=== PATIENT | female | born 1980 | race Caucasian/White ===

== ENCOUNTER 2016-09-28 21:25 | Emergency (ER) | payer MEDICAID, OTHER ==
[~2016-09-28] VITALS: Ht 152.4 cm; Wt 73.1 kg
[~2016-09-28 21:25] MED LIST: ACET-818 PO; PREN-39 PO
[2016-09-28 21:51] VITALS: Ht 152.4 cm; Wt 73.1 kg
[2016-09-28] MEDS ORDERED: LIDOCAINE 1% (MDV) 20 ML INJ SC ONE (23:00)
[2016-09-28] MEDS ORDERED: SILVER NITRATE SWAB TOP ONE (23:00)
[2016-09-29] MEDS ORDERED: HYDR-906 PO (00:20)
[2016-09-29] MEDS ORDERED: CEPH-443 PO (00:20)
[2016-09-29] MEDS ORDERED: ACETAMINOPHEN 500 MG TAB PO STA (00:22)
--- NOTE | 2016-09-29 00:29 | ERD ---
ER Documentation Chief Complaint Date/Time DATE: 09/29/16 TIME: 00:24 Chief Complaint finger injury 3 weeks ago HPI Is a 36-year-old female who presents to the emergency department today complaining of a bump on her finger that is very painful. Patient states that she injured it 3 weeks ago with stabbing herself with a pencil. Denies any fevers or chills per ROS All systems reviewed and are negative except as per history of present illness. Medications Home Meds Active Scripts Hydrocodone/Acetaminophen ([place] 5-325 Tablet) 1 Each Tablet, 1 TAB PO Q6H Y for PAIN, #12 TAB Prov:CHINTAN BABIN PA-C 09/29/16 Cephalexin* (Keflex*) 500 Mg Capsule, 500 MG PO QID for 7 Days, CAP Prov:CHINTAN BABIN PA-C 09/29/16 Reported Medications Acetaminophen-Codeine* (Tylenol No.3*) 300-30 Mg Tablet, 1 TAB PO Q4H Y for PAIN , TAB 04/01/14 Vits W-Ca,Fe,Fa(<1MG) ( Vitamins) 1 Tab Tablet, 1 TAB PO HS 03/30/14 Allergies Allergies: Coded Allergies: No Known Drug Allergies (Verified Allergy, Mild, 09/28/16) PMhx/Soc History of Surgery: Yes (IUD) Anesthesia Reaction: No Hx Neurological Disorder: No Hx Respiratory Disorders: No Hx Cardiac Disorders: No Hx Psychiatric Problems: No Hx Miscellaneous Medical Probl: No Hx Alcohol Use: No Hx Substance Use: No Hx Tobacco Use: No Smoking Status: Unknown if ever smoked Physical Exam Vitals Vital Signs Date Time Temp Pulse Resp B/P Pulse Ox O2 Delivery O2 Flow Rate FiO2 09/28/16 21:51 98.3 96 18 113/66 99 Physical Exam Const: No acute distress Head: Atraumatic Eyes: Normal Conjunctiva ENT: Normal External Ears, Nose and Mouth. Neck: Full range of motion..~ No meningismus. Resp: Clear to auscultation bilaterally Cardio: Regular rate and rhythm, no murmurs Abd: Soft, non tender, non distended. Normal bowel sounds Skin: Right hand second finger with evidence of pyogenic granuloma Ext: Right hand second finger with evidence of pyogenic granuloma. No evidence of cellulitis. No purulent drainage. Neur: Awake and alert Psych: Normal Mood and Affect Results 24 hrs Current Medications Medications (Trade) Dose Ordered Sig/Jamin Route PRN Reason Start Time Stop Time Status Last Admin Dose Admin Silver Nitrate (Silver Nitrate Swabs) 5 stick ONCE ONCE TOP 09/28/16 23:00 09/28/16 23:01 DC Lidocaine (Xylocaine 1% (Mdv) 20 ml) 20 ml ONCE ONCE SC 09/28/16 23:00 09/28/16 23:01 DC Procedures/MDM This is a 36-year-old female presents to the emergency department today complaining of a bump on her right hand after stabbing herself with a pencil. On physical exam patient has evidence of a pyogenic granuloma. Patient was asking me to cut off the area if possible. I did explain to the patient that the area does bleed a fair amount but that I could try to cauterize it and remove some of the tissue. I explained the risks and benefits of the patient and the patient agreed to proceed. The area was prepped in the usual sterile fashion. Patient tolerated the procedure well. There was some bleeding that persisted and therefore after using the silver nitrate cauterization Surgicel was placed as opposed to using a stitch given that silver nitrate had already been applied.. Location: Right hand second finger Anesthesia: [Local 1% Lidocaine] 1 cc Complications: [Neurovascularly intact post procedure] 48 hour wound check. Scar minimization instructions given. Exam and w/u not consistent w/ sepsis, deep space infection, or foreign body. Patient is hemodynamically stable. She was given Tylenol here in the emergency department as she is here with her 3 children and she is driving. I did give her a prescription for Bloomburg for home as well as Keflex. Patient was instructed to return tomorrow for a wound check to have the Surgicel removed. At this time the patient is stable for discharge and outpatient management. Patient should follow up with their PCP in the next 1-2 days. They may return to the emergency department sooner for any persistent or worsening of symptoms. Patient understood and agreed with the plan. Departure Diagnosis: Primary Impression: Pyogenic granuloma Condition: Fair Patient Instructions: Pyogenic Granuloma Referrals: ANABELLE RODRÍGUEZ MD,JAMSHID GAITAN,KELSIE RODRIGUEZ,GWENDOLYN VANG,TENZIN GARG,SILVIA [facility] YOU HAVE RECEIVED A MEDICAL SCREENING EXAM AND THE RESULTS INDICATE THAT YOU DO NOT HAVE A CONDITION THAT REQUIRES URGENT TREATMENT IN THE EMERGENCY DEPARTMENT. FURTHER EVALUATION AND TREATMENT OF YOUR CONDITION CAN WAIT UNTIL YOU ARE SEEN IN YOUR DOCTORS OFFICE WITHIN THE NEXT 1-2 DAYS. IT IS YOUR RESPONSIBILITY TO MAKE AN APPOINTMENT FOR FOLOW-UP CARE. IF YOU HAVE A PRIMARY DOCTOR --you should call your primary doctor and schedule an appointment IF YOU DO NOT HAVE A PRIMARY DOCTOR YOU CAN CALL OUR PHYSICIAN REFERRAL HOTLINE AT IF YOU CAN NOT AFFORD TO SEE A PHYSICIAN YOU CAN CHOSE FROM THE FOLLOWING [facility] [address] [facility]. [facility] [address] [facility] [address] [facility] [facility] [address] [facility] [facility] [address] [facility] [facility] [address] Additional Instructions: Call your primary care doctor TOMORROW for an appointment during the next 1-2 days.See the doctor sooner or return here if your condition worsens before your appointment time. Recheck wound tomorrow Take Blo[place] for pain otherwise take tylenol or motrin Take antibiotics as prescribed CHINTAN BABIN PA-C Sep 29, 2016 00:29
[2016-09-29 00:57] VITALS: BP 120/74; PULSE 101; RESP 16
== END 2016-09-29 00:58 | disposition home or self-care (01) ==
LOC: FTE 21:25
DX: L98.0 Pyogenic granuloma (principal); W26.8XXA Contact with other sharp object(s), not elsewhere classified, initial encounter; Y92.9 Unspecified place or not applicable
CPT/HCPCS: 12001; Z7502; Z7610

== ENCOUNTER 2016-11-05 09:59 | Emergency (ER) | payer MEDICAID ==
[~2016-11-05] VITALS: Wt 70.2 kg
[~2016-11-05 09:59] MED LIST changes: +CEPH-443 PO; +HYDR-906 PO
[2016-11-05] MEDS ORDERED: LIDOCAINE/MYLANTA 40 ML BTL PO STA (10:40)
[2016-11-05] MEDS ORDERED: FAMOTIDINE 20 MG INJ IV STA (10:40)
[2016-11-05] MEDS ORDERED: ONDANSETRON 4 MG INJ IV STA (10:40)
[2016-11-05 11:05] LABS: ADD SCAN DIFF NO
[2016-11-05 11:07] LABS: BASOPHILS % 0.2 % (0.0-2.0); EOSINOPHILS % 0.7 % (0.0-7.0); HEMATOCRIT 41.8 % (37.0-47.0); HEMOGLOBIN 13.9 g/dl (12.0-16.0); LYMPHOCYTES # 1.9 10^3/ul (0.8-2.9); LYMPHOCYTES % 32.6 % (15.0-51.0); MEAN CORPUSCULAR HGB CONC 33.3 g/dl (32.0-37.0); MEAN CORPUSCULAR VOLUME 90.3 fl (82.0-101.0); MEAN PLATELET VOLUME 9.6 fl (7.4-10.4); MONOCYTE # 0.4 10^3/ul (0.3-0.9); MONOCYTES % 7.3 % (0.0-11.0); NEUTROPHIL # 3.4 10^3/ul (1.6-7.5); PLATELET COUNT 272 10^3/UL (140-415); RED BLOOD COUNT 4.63 10^6/ul (4.20-5.40); RED CELL DISTRIBUTION WIDTH 12.6 % (11.5-14.5); WHITE BLOOD COUNT 5.8 10^3/ul (4.8-10.8)
[2016-11-05 11:16] LABS: ADD UMIC YES; URINE BILIRUBIN (Dip) NEGATIVE (NEGATIVE); URINE BLOOD (Dip) TRACE (NEGATIVE); URINE COLOR LT. YELLOW (YELLOW); URINE GLUCOSE (Dip) NEGATIVE (NEGATIVE); URINE KETONES (Dip) NEGATIVE (NEGATIVE); URINE LEUKOCYTE ESTERASE (Dip) NEGATIVE (NEGATIVE); URINE NITRITE (Dip) NEGATIVE (NEGATIVE); URINE TOTAL PROTEIN (Dip) NEGATIVE (NEGATIVE); URINE UROBILINOGEN (Dip) 0.2 E.U./dL (0.1-1.0)
[2016-11-05 11:22] LABS: ALBUMIN 4.2 g/dl (3.3-4.9)
[2016-11-05 11:23] LABS: POTASSIUM 3.8 mmol/L (3.5-5.1)
[2016-11-05 11:25] LABS: ALBUMIN/GLOBULIN RATIO 1.16; BILIRUBIN,INDIRECT 0.3 mg/dl (0-1.1); BILIRUBIN,TOTAL 0.3 mg/dl (0.2-1.3); CREATININE 0.53 mg/dl (0.44-1.00); TOTAL PROTEIN 7.8 g/dl (6.1-8.1)
[2016-11-05 11:26] LABS: CALCIUM 8.9 mg/dl (8.4-10.2)
[2016-11-05 11:28] LABS: SQUAMOUS EPITHELIAL CELL,UR FEW; URINE RBCS 0-2 /HPF (0)
--- NOTE | 2016-11-05 12:04 | RADRPT ---
PROCEDURE: Right upper quadrant abdominal ultrasound. CLINICAL INDICATION: Abdominal pain TECHNIQUE: Santana scale and color doppler ultrasound images of the right upper quadrant. COMPARISON: None FINDINGS: Pancreas: Visualized portions appear of normal echogenicity, no focal lesions. Liver: Morphology: Normal in size and contour. Echogenicity: Normal. Focal lesions: None. Main portal vein: Patent with hepatopetal flow. Biliary System: Normal appearing gallbladder wall. Small gallstones are present within the gallbladder. No intrahepatic biliary dilatation. Common bile duct measures 4.8 mm in maximal dimension. Kidneys: Right 10.3 cm in length. Right renal cortical thickness is preserved. Normal echogenicity. No hydronephrosis. No renal calculi. No focal lesions. No free fluid identified. IMPRESSION: Cholelithiasis without evidence of abnormal gallbladder wall thickening to suggest cholecystitis. Normal caliber of the intrahepatic and extrahepatic biliary system. RPTAT: AADD .Jerad Peters MD, MD Date Time Electronically viewed and signed by .Jerad Peters MD, MD on 11/05/2016 12:03 .B/
[2016-11-05] MEDS ORDERED: TRAM50TA2 PO (12:09)
[2016-11-05] MEDS ORDERED: PANT40TA3 PO (12:09)
[2016-11-05 12:27] VITALS: BP 128/71; PULSE 77; RESP 18
--- NOTE | 2016-12-17 10:44 | ERD ---
ER Documentation Chief Complaint Date/Time DATE: 12/17/16 TIME: 10:43 Chief Complaint epigasgtric burning pain for a few wks. no vomiting just diarrhea HPI This 36 female complains of epigastric abdominal pain last few weeks. Denies any vomiting although she does have some nausea. She does have some diarrhea without blood or mucus. She denies fevers. ROS All systems reviewed and are negative except as per history of present illness. Medications Home Meds Active Scripts Pantoprazole* (Protonix*) 40 Mg Tablet.dr, 40 MG PO DAILY, #30 TAB Prov:FLASH PEREZ MD 11/05/16 Tramadol HCl (Tramadol HCl) 50 Mg Tablet, 50 MG PO Q4 Y for PAIN, #20 TAB Prov:FLASH PEREZ MD 11/05/16 Hydrocodone/Acetaminophen ([place] 5-325 Tablet) 1 Each Tablet, 1 TAB PO Q6H Y for PAIN, #12 TAB Prov:CHINTAN BABIN PA-C 09/29/16 Cephalexin* (Keflex*) 500 Mg Capsule, 500 MG PO QID for 7 Days, CAP Prov:CHINTAN BABIN PA-C 09/29/16 Reported Medications Acetaminophen-Codeine* (Tylenol No.3*) 300-30 Mg Tablet, 1 TAB PO Q4H Y for PAIN , TAB 04/01/14 Vits W-Ca,Fe,Fa(<1MG) ( Vitamins) 1 Tab Tablet, 1 TAB PO HS 03/30/14 Allergies Allergies: Coded Allergies: No Known Drug Allergies (Verified Allergy, Mild, 11/05/16) PMhx/Soc History of Surgery: Yes (IUD) Anesthesia Reaction: No Hx Neurological Disorder: No Hx Respiratory Disorders: No Hx Cardiac Disorders: No Hx Psychiatric Problems: No Hx Miscellaneous Medical Probl: No Hx Alcohol Use: No Hx Substance Use: No Hx Tobacco Use: No Smoking Status: Never smoker Physical Exam Physical Exam Const: [] Alert, [id number]. Head: Atraumatic Eyes: Normal Conjunctiva ENT: Normal External Ears, Nose and Mouth. Neck: Full range of motion..~ No meningismus. Resp: Clear to auscultation bilaterally Cardio: Regular rate and rhythm, no murmurs Abd: Soft, non tender, non distended. Normal bowel sounds Skin: No petechiae or rashes Back: No midline or flank tenderness Ext: No cyanosis, or edema Neur: Awake and alert Psych: Normal Mood and Affect Results 24 hrs Laboratory Tests Test 11/05/16 09:45 11/05/16 10:50 Urine Color LT. YELLOW Urine Clarity CLEAR Urine pH 6.0 Urine Specific [place] 1.020 Urine Ketones NEGATIVE Urine Nitrite NEGATIVE Urine Bilirubin NEGATIVE Urine Urobilinogen 0.2 E.U./dL Urine Leukocyte Esterase NEGATIVE Urine Microscopic RBC 0-2/HPF Urine Microscopic WBC NONE SEEN/HPF Urine Squamous Epithelial Cells FEW Urine Hemoglobin TRACE Urine Glucose NEGATIVE% Urine Total Protein NEGATIVE White Blood Count 5.810^3/ul Red Blood Count 4.6310^6/ul Hemoglobin 13.9g/dl Hematocrit 41.8% Mean Corpuscular Volume 90.3fl Mean Corpuscular Hemoglobin 30.0pg Mean Corpuscular Hemoglobin Concent 33.3g/dl Red Cell Distribution Width 12.6% Platelet Count 80322^3/UL Mean Platelet Volume 9.6fl Neutrophils % 59.0% Lymphocytes % 32.6% Monocytes % 7.3% Eosinophils % 0.7% Basophils % 0.2% Nucleated Red Blood Cells % 0.0/100WBC Neutrophils # 3.410^3/ul Lymphocytes # 1.910^3/ul Monocytes # 0.410^3/ul Eosinophils # 0.010^3/ul Basophils # 0.010^3/ul Nucleated Red Blood Cells # 0.010^3/ul Sodium Level 137mmol/L Potassium Level 3.8mmol/L Chloride Level 104mmol/L Carbon Dioxide Level 26mmol/L Anion Gap 11 Blood Urea Nitrogen 7mg/dl Creatinine 0.53mg/dl Glucose Level 93mg/dl Calcium Level 8.9mg/dl Total Bilirubin 0.3mg/dl Direct Bilirubin 0.00mg/dl Indirect Bilirubin 0.3mg/dl Aspartate Amino Transf (AST/SGOT) 24IU/L Alanine Aminotransferase (ALT/SGPT) 37IU/L Alkaline Phosphatase 93IU/L Total Protein 7.8g/dl Albumin 4.2g/dl Globulin 3.60g/dl Albumin/Globulin Ratio 1.16 Lipase 65U/L Current Medications Medications (Trade) Dose Ordered Sig/Jamin Route PRN Reason Start Time Stop Time Status Last Admin Dose Admin Ondansetron HCl (Zofran Inj) 4 mg ONCE STAT IV 11/05/16 10:40 11/05/16 10:42 DC 11/05/16 10:49 Famotidine (Pepcid Iv) 20 mg ONCE STAT IV 11/05/16 10:40 11/05/16 10:42 DC 11/05/16 10:49 Miscellaneous Medication (Gi Cocktail (2)) 40 ml ONCE STAT PO 11/05/16 10:40 11/05/16 10:42 DC 11/05/16 10:49 Procedures/MDM Quadrant ultrasound shows gallstones without evidence of cholecystitis or obstruction. CBC and CMP and lipase are normal. Urine is negative and hCG is negative. Patient has signs and symptoms of epigastric abdominal pain with gallstones on ultrasound. She may have gastritis as well as biliary colic. She will be treated with tramadol and Protonix instructed to follow-up with primary doctor. Patient is advised on surgery evaluation is definitive care. She should return for fevers, vomiting, blood, new worsening symptoms with primary care doctor. The patient was stable with no new complaints during the ER course. Clinically, there is no current evidence to suggest meningitis, sepsis, acute abdomen, pneumonia, acute coronary syndrome, pulmonary embolism, or any other emergent condition appearing to require further evaluation or hospitalization. The patient should certainly return for any new or worsening symptoms per the aftercare instructions. They should otherwise follow-up with her primary care doctor for reevaluation this week. Departure Diagnosis: Primary Impression: Abdominal pain Condition: Stable Patient Instructions: Gallstones, Gastritis (Adult) Referrals: KIM LIM MD, KAMBIZ M.D. CHETTY, NAGARAJ M MD JOGANI, PIYUSH K MD [facility] YOU HAVE RECEIVED A MEDICAL SCREENING EXAM AND THE RESULTS INDICATE THAT YOU DO NOT HAVE A CONDITION THAT REQUIRES URGENT TREATMENT IN THE EMERGENCY DEPARTMENT. FURTHER EVALUATION AND TREATMENT OF YOUR CONDITION CAN WAIT UNTIL YOU ARE SEEN IN YOUR DOCTORS OFFICE WITHIN THE NEXT 1-2 DAYS. IT IS YOUR RESPONSIBILITY TO MAKE AN APPOINTMENT FOR FOLOW-UP CARE. IF YOU HAVE A PRIMARY DOCTOR --you should call your primary doctor and schedule an appointment IF YOU DO NOT HAVE A PRIMARY DOCTOR YOU CAN CALL OUR PHYSICIAN REFERRAL HOTLINE AT IF YOU CAN NOT AFFORD TO SEE A PHYSICIAN YOU CAN CHOSE FROM THE FOLLOWING [facility] [address] [facility] [address] [facility] [address] [facility] [address] [facility] [address] [facility]. [facility]. [address] Additional Instructions: Labs normal today. Ultrasound shows gallstones without signs of complication such as infection or obstruction. Signs and symptoms more likely gastritis. Recheck for fevers, vomiting, new symptoms. See primary doctor for further evaluation and possible gastroenterology or surgery referral. FLASH PEREZ MD December 17, 2016 10:44
== END 2016-11-05 13:31 | disposition home or self-care (01) ==
LOC: FTE 09:59
DX: R10.13 Epigastric pain (principal)
CPT/HCPCS: 76705; 80053; 81001; 83690; 85025; J2405; Z7610; 36415; 81003; 96374; 96375